=== PATIENT | female | born 1985 | race Caucasian/White ===

== ENCOUNTER 2017-04-23 06:27 | Inpatient (IN) | payer MEDICAID ==
[2017-04-20 09:51] LABS: ABSOLUTE EOSINOPHILS # (AUTO) 0.1 10^3/uL (0.0-0.6); ABSOLUTE LYMPHOCYTES (AUTO) 1.3 10^3/uL (0.5-4.7); ABSOLUTE MONOCYTES (AUTO) 0.6 10^3/uL (0.1-1.4); ABSOLUTE NEUT (AUTO) 7.1 10^3/uL (1.7-8.2); BASOPHILS % (AUTO) 0.1 % (0-2); EOSINOPHILS % (AUTO) 0.8 % (0-6); HEMATOCRIT 37.9 % (36.0-47.0); HEMOGLOBIN 12.7 g/dL (12.0-15.5); HGB HCT DIFFERENCE 0.2; LYMPHOCYTES % (AUTO) 14.3 % (13-45); MEAN CORPUSCULAR HEMOGLOBIN 30.6 pg (27.0-33.4); MEAN CORPUSCULAR HGB CONC 33.4 g/dL (32.0-36.0); MEAN CORPUSCULAR VOLUME 92 fl (80-97); MONOCYTES % (AUTO) 6.3 % (3-13); RED BLOOD COUNT 4.14 10^6/uL (3.72-5.28); RED CELL DISTRIBUTION WIDTH 14.8 % (11.5-14.0); SEGMENTED NEUTROPHILS % (AUTO) 78.5 % (42-78); WHITE BLOOD COUNT 9.1 10^3/uL (4.0-10.5)
[2017-04-20 09:59] LABS: APPEARANCE,URINE CLOUDY; BILIRUBIN,URINE NEGATIVE (NEGATIVE); GLUCOSE, URINE NEGATIVE (NEGATIVE); KETONES,URINE TRACE mg/dL (NEGATIVE); LEUKOCYTE ESTERASE,URINE TRACE (NEGATIVE); NITRITE,URINE NEGATIVE (NEGATIVE); PROTEIN,URINE 30 mg/dL (NEGATIVE); URINE SPECIFIC GRAVITY 1.016
[2017-04-20 10:13] LABS: URINE BARBITURATES SCREEN NEGATIVE; URINE METHADONE SCREEN NEGATIVE; URINE OPIATES LOW NEGATIVE; URINE PHENCYCLIDINE SCREEN NEGATIVE
[2017-04-23] MEDS ORDERED: CEFAZOLIN 1 GM/D5W RTU 1 GM/50 ML RTUPB IV PRN (07:05)
[2017-04-23] MEDS ORDERED: LIDOCAINE 0.5% INJ-PF (5 MG/ML) 50 ML SDV SUBCUT PRN (07:08)
[2017-04-23] MEDS ORDERED: RINGERS SOLUTION,LACTATED 1,000 ML IV PRN ×2 (07:08→07:09)
[2017-04-23] MEDS ORDERED: CITRIC ACID/SODIUM CITRATE ORAL SOLN 15 ML UDCUP PO PRN (07:10)
[2017-04-23] MEDS ORDERED: OXYTOCIN 10 UNIT/ML VIAL ONE (08:56)
[2017-04-23] MEDS ORDERED: PROPOFOL INJ 200 MG/20 ML VIAL IV ONE (08:56)
[2017-04-23] MEDS ORDERED: FENTANYL CITRATE INJ/PF 100 MCG/2 ML AMPUL ONE (08:56)
[2017-04-23] MEDS ORDERED: MIDAZOLAM 2 MG/2 ML INJ ONE (08:57)
[2017-04-23] MEDS ORDERED: PHENYLEPHRINE HCL INJ/PF 10 MG/1 ML SDV ONE (09:45)
[2017-04-23] MEDS ORDERED: ONDANSETRON HCL INJ/PF 4 MG/2 ML SDV ONE (09:45)
[2017-04-23] MEDS ORDERED: MEPERIDINE HCL/PF INJ 25 MG/1 ML DISP.SYRIN ONE (10:22)
[2017-04-23] MEDS ORDERED: OXYTOCIN/NORMAL SALINE 20 UNIT/1,000 ML RTUINJ ONE (10:28)
[2017-04-23] MEDS ORDERED: MORPHINE SULFATE 10 MG/ML INJ ONE (11:21)
[2017-04-23] MEDS ORDERED: HYDROMORPHONE HCL INJ/PF 2 MG/ML AMPULE IV PRN (12:41)
[2017-04-23] MEDS ORDERED: DIPH/PERTUSS(ACELL)/TETANUS VAC/PF 0.5 ML SYR (>=10YO) IM PRN (12:41)
[2017-04-23] MEDS ORDERED: PROMETHAZINE HCL INJ 25 MG/1 ML VIAL IV PRN (12:41)
[2017-04-23] MEDS ORDERED: MEASLES,MUMPS&RUBELLA VACC/PF 0.5 ML VIAL SUBCUT PRN (12:41)
[2017-04-23] MEDS ORDERED: SIMETHICONE 80 MG TAB.CHEW PO PRN (12:41)
[2017-04-23] MEDS ORDERED: OXYTOCIN/NORMAL SALINE 1,000 ML IV PRN (12:41)
[2017-04-23] MEDS ORDERED: ACETAMINOPHEN 325 MG TABLET PO PRN (12:41)
[2017-04-23] MEDS: KETOROLAC TROMETHAMINE INJ/PF 30 MG/1 ML SDV IV SCH ×2 (13:17→22:19)
[2017-04-23] MEDS: DOCUSATE SODIUM 100 MG CAPSULE PO SCH (18:14)
[2017-04-23] MEDS: OXYCODONE-ACETAMINOPHEN 5-325 MG TABLET PO PRN (20:37)
[2017-04-24] MEDS: OXYCODONE-ACETAMINOPHEN 5-325 MG TABLET PO PRN ×4 (02:27→22:05)
[2017-04-24] MEDS: KETOROLAC TROMETHAMINE INJ/PF 30 MG/1 ML SDV IV SCH (05:22)
[2017-04-24 07:32] LABS: HEMATOCRIT 37.4 % (36.0-47.0); HEMOGLOBIN 12.4 g/dL (12.0-15.5); HGB HCT DIFFERENCE -0.2; MEAN CORPUSCULAR HEMOGLOBIN 30.3 pg (27.0-33.4); MEAN CORPUSCULAR HGB CONC 33.1 g/dL (32.0-36.0); MEAN CORPUSCULAR VOLUME 92 fl (80-97); RED BLOOD COUNT 4.09 10^6/uL (3.72-5.28); RED CELL DISTRIBUTION WIDTH 14.8 % (11.5-14.0); WHITE BLOOD COUNT 11.9 10^3/uL (4.0-10.5)
[2017-04-24] MEDS: PRENATAL VITAMIN W-O CA NO5/FE FUMARATE/FA CAPSULE PO SCH (10:05)
[2017-04-24] MEDS: DOCUSATE SODIUM 100 MG CAPSULE PO SCH ×2 (10:05→18:10)
--- NOTE | 2017-04-24 11:00 | PDOC PROGRESS REPORT ---
Subjective-OB Subjective: Post Delivery Day: 31 year old. Denies any needs at this time pt sitting up visiting with family incision dry and intact ff@u-1 mild lochia abdomen nontender +flatus anticipate d/c in AM Physical Exam (OB) Vital Signs: Temp Pulse Resp BP Pulse Ox 97.9 F 73 16 113/73 98 04/24/17 08:16 04/24/17 08:16 04/24/17 08:16 04/24/17 08:16 04/24/17 08:16 Intake & Output 04/23/17 04/24/17 04/25/17 06:59 06:59 06:59 Intake Total 240 Output Total 800 Balance -560 Weight 76 kg - PIH/Pre-Eclampsia DTR's: 1 + Clonus: Negative Headache: Absent Epigastric Pain: No Visual Changes: No - Dressing Removed: No Incision: Dressing Closure Type: Sutures - Lochia Lochia Amount: Scant < 10 ml Lochia Color: Rubra/Red - Abdomen Description: Tender, Soft Hernia Present: No Fundal Description: Firm, Midline Fundal Height: u/u - u/2 Objective-Diagnostic Laboratory: 04/24/17 07:10 04/24/17 07:10 WBC 11.9 H RBC 4.09 Hgb 12.4 Hct 37.4 MCV 92 MCH 30.3 MCHC 33.1 RDW 14.8 H Plt Count 145 L
[2017-04-24] MEDS: IBUPROFEN 800 MG TABLET PO SCH (23:02)
[2017-04-25] MEDS: OXYCODONE-ACETAMINOPHEN 5-325 MG TABLET PO PRN ×2 (02:05→08:35)
[2017-04-25] MEDS: IBUPROFEN 800 MG TABLET PO SCH ×2 (05:56→11:35)
[2017-04-25] MEDS: PRENATAL VITAMIN W-O CA NO5/FE FUMARATE/FA CAPSULE PO SCH (08:34)
[2017-04-25] MEDS: DOCUSATE SODIUM 100 MG CAPSULE PO SCH (08:35)
--- NOTE | 2017-04-25 10:18 | PDOC PROGRESS REPORT ---
Subjective-OB Subjective: Post Delivery Day: 31 year old. Denies any needs at this time Doing well, ready to go home, eating well, voiding, ambulating, pain under control, scant bleeding Physical Exam (OB) Vital Signs: Temp Pulse Resp BP Pulse Ox 98.0 F 59 L 16 116/79 99 04/25/17 08:10 04/25/17 08:10 04/25/17 08:10 04/25/17 08:10 04/25/17 08:10 Intake & Output 04/24/17 04/25/17 04/26/17 06:59 06:59 06:59 Intake Total 240 480 Output Total 800 Balance -560 480 Weight 76 kg - PIH/Pre-Eclampsia DTR's: 1 + Clonus: Negative Headache: Absent Epigastric Pain: No Visual Changes: No - Dressing Removed: No - opsite Incision: Dressing Closure Type: Sutures - Lochia Lochia Amount: Small 10-25 ml Lochia Color: Rubra/Red - Abdomen Description: Soft Hernia Present: No Fundal Description: Firm, Midline Fundal Height: u/u - u/2 Objective-Diagnostic Laboratory: 04/24/17 07:10 Assessment and Plan(PN) - Assessment and Plan (1) Arrested labor Is this a current diagnosis for this admission?: Yes (2) Delivery by emergency caesarean section Is this a current diagnosis for this admission?: Yes (3) Gestational hypertension Qualifiers: Trimester: third trimester Qualified Code(s): O13.3 - Gestational [ -induced] hypertension without significant proteinuria, third trimester Is this a current diagnosis for this admission?: Yes - Time Spent with Patient Time with patient: Less than 15 minutes Medications reviewed and adjusted accordingly: Yes - Disposition Anticipated Discharge: Home Within: Other - home today
--- NOTE | 2017-04-25 10:21 | PDOC DISCHARGE SUMMARY ---
Final Diagnosis Discharge Date: 04/25/17 - Final Diagnosis (1) Arrested labor Is this a current diagnosis for this admission?: Yes (3) Gestational hypertension Is this a current diagnosis for this admission?: Yes Discharge Data - Discharge Medication Home Medications: Ozh219/Iron Fumarate/FA/Dss [ 19 Tablet] 1 each PO DAILY 11/04/15 Ferrous Sulfate [Feosol 325 mg Tablet] 325 mg PO BID #0 tablet 11/12/15 Ibuprofen [Motrin 800 mg Tablet] 800 mg PO Q6 #60 tablet 04/25/17 Oxycodone HCl/Acetaminophen [Percocet 5-325 mg Tablet] 1 tab PO Q4HP PRN #30 tablet 04/25/17 Gestational Age: 39 Procedures: NST, Ultrasound Intrapartum Procedure(s): : Low Cervical, Transverse - Data Baby 1 Male Weight: 4.054 kg Home with Mother: Yes Complications: No - Diagnosis Test Laboratory: Temp Pulse Resp BP Pulse Ox 98.0 F 59 L 16 116/79 99 04/25/17 08:10 04/25/17 08:10 04/25/17 08:10 04/25/17 08:10 04/25/17 08:10 04/20/17 04/20/17 04/24/17 09:11 09:20 07:10 RBC 4.14 4.09 Hgb 12.7 12.4 Hct 37.9 37.4 Urine Opiates Screen NEGATIVE - Discharge information/Instructions Discharge Activity: Activity As Tolerated, No Lifting Over 10 Pounds, Pelvic Rest Discharge Diet: Regular Disposition: HOME, SELF-CARE Follow up with: [facility] in: 1, Weeks
[2017-04-25 11:23] VITALS: BP 126/78
--- NOTE | 2017-06-03 20:22 | PDOC DELIVERY SUMMARY ---
Delivery Summary - Maternal Hx : IV Hx # Term Pregnancies: 1 Hx Total # of Abortions (Sponateous & Elective): 2 AUDREY: 04/29/17 Gestational Age: 39 Ruptured Membranes: AROM Time of Rupture: 09:38 Fluids: Clear - Delivery Presentation: Vertex Heart Rate Monitoring: Done Pre-Operatively Support Person Present: Yes Location: OR : Scheduled Placenta: Within Normal Limits Delivery of Placenta Date: 04/23/17 Delivery of Placenta Time: 09:39 - Medications Type of Anesthesia:: Spinal - Assess and Care Baby 1 Male Delivery of Infant Date: 04/23/17 Delivery of Time: 09:38 at 1 minute: 8 at 5 minutes: 8 Preprinted Number On Band: [id number] Infant Skin to Skin: No - INFANT REQUIRED MONITORING To Nursery At: 09:46 Mode of Transport: Bassinet Delivery Weight: 4055 kg Delivery Length: 21 in - Delivery Personnel Billing Auditor: DR RENETTA Lomax RN: DAXA RN: BEV MARTINEZ MD: LAURY SHANE
--- NOTE | 2017-06-07 15:28 | OPERATIVE REPORT E ---
Operative Report NAME: VY REY : 1985 AGE: 31Y DATE OF SURGERY: 04/23/2017 ROOM: 226 PREOPERATIVE DIAGNOSES: 1. IUP at 39 plus weeks. 2. Previous C section, desires repeat. POSTOPERATIVE DIAGNOSES: 1. IUP at 39 plus weeks. 2. Previous C section, desires repeat. SURGEON: LAURY SHANE M.D. ANESTHESIOLOGIST: SONYA CASE M.D. ANESTHESIA: Spinal. FINDINGS: A male infant in cephalic presentation with Apgars of 8 and 8. COMPLICATIONS: None. ESTIMATED BLOOD LOSS: 600 mL. SPECIMENS REMOVED: None. PROCEDURE: Low transverse hysterotomy section. PROCEDURE IN DETAIL: The patient was taken to the operating room, prepared and draped in the normal sterile fashion in the supine position with a leftward tilt. A transverse skin incision was made with a scalpel and carried through the underlying layer of fascia with same scalpel. The fascia was excised in the midline and extended laterally with Azul scissors. The fascia was then dissected from the rectus muscle sharply with Edmund and the rectus muscle was divided. The peritoneal cavity was entered bluntly with surgeon finger fracture. With good visualization of the bladder and the uterus, a bladder blade was inserted. The hysterotomy was nicked with a scalpel and extended laterally with surgeon finger fracture. The infant's head was then delivered atraumatically. The nose and mouth were suctioned with a suction bulb and cord was clamped and cut. Infant was handed off to awaiting pediatricians. Cord blood was collected and the placenta was removed manually. The uterus was exteriorized and cleared of clots and debris. The hysterotomy was closed with 0-Monocryl in a running locked fashion. The second layer of the same suture was used to imbricate to ensure hemostasis. The uterus was returned to the abdomen. The peritoneal cavity was once again cleared of clots and debris. The hysterotomy was reinspected and now found to be hemostatic. The rectus muscle and peritoneum were reapproximated with a stitch of 2-0 Chromic using a mattress stitch. The fascia was closed with 0 Vicryl, the subcutaneous layer was closed with plain catgut and the skin was closed with 4-0 Vicryl. The patient tolerated the procedure well. Sponge, lap, and needle counts were correct x2. The patient was taken to recovery in a stable condition. DICTATING PHYSICIAN: LAURY SHANE M.D. [id number] PHY#: [id number] ID: [id number] JOB#: [id number] ACCT: [id number] cc:LAURY SHANE M.D. >
== END 2017-04-25 12:32 | disposition home or self-care (01) | DRG 766 ==
LOC: 2S 06:27
PROVIDERS: ADMIT Obstetrics & Gynecology; ATTEND Obstetrics & Gynecology
PROC: 4A1HXCZ Monitoring of Products of Conception, Cardiac Rate, External Approach (ICD-10-PCS; 2017-04-23)
PROC: 10D00Z1 Extraction of Products of Conception, Low, Open Approach (ICD-10-PCS; principal; 2017-04-23 09:30)
DX: O62.1 Secondary uterine inertia (principal); O34.211 Maternal care for low transverse scar from previous cesarean delivery; O13.4 Gestational [pregnancy-induced] hypertension without significant proteinuria, complicating childbirth; Z83.3 Family history of diabetes mellitus; Z82.49 Family history of ischemic heart disease and other diseases of the circulatory system; Z3A.39 39 weeks gestation of pregnancy; Z37.0 Single live birth
CPT/HCPCS: 1961; 36415; 59025; 80307; 81001; 85025; 85027; 86850; 86900; 86901; 94799; J1885; J2175; J2250; J2270; J2370; J2405; J2590; J2704; J3010; J7120

== ENCOUNTER 2017-05-21 19:30 | Emergency (ER) | payer MEDICAID ==
[2017-05-21] MEDS ORDERED: LIDOCAINE 5% (700 MG) TRANSDERMAL ADH..PATCH TP ONE (23:10)
--- NOTE | 2017-05-21 23:10 | ER Document Report ---
ED General - General Chief Complaint: Post Surgical Pain Stated Complaint: POST-OP PAIN Time Seen by Provider: 05/21/17 23:05 TRAVEL OUTSIDE OF THE [place] IN LAST 30 DAYS: No - HPI Patient complains to provider of: incisional pain Notes: Patient is approximate 4 weeks postop from having patient states this is her second with no complications coming in for pain left side of the incision patient states she did not have this pain with her previous . Patient states pain sharp stabbing shooting going up in her leg and sometimes with movement of her leg. Denies any fever chills nausea vomiting dysuria. - Related Data Allergies/Adverse Reactions: No Known Allergies Allergy (Verified 04/20/17 10:10) Past Medical History - Social History Smoking Status: Never Smoker Chew tobacco use (# tins/day): No Frequency of alcohol use: None Drug Abuse: None Family History: Reviewed & Not Pertinent Renal/ Medical History: Denies: Hx Peritoneal Dialysis GI Medical History: Reports: Hx Gastroesophageal Reflux Disease. Denies: Hx Hiatal Hernia, Hx Ulcer Infectious Medical History: Denies: Hx HIV Past Surgical History: Reports: Hx Section - 2 Review of Systems - Review of Systems Constitutional: No symptoms reported EENT: No symptoms reported Cardiovascular: No symptoms reported Respiratory: No symptoms reported Gastrointestinal: Other - scar pain Genitourinary: No symptoms reported Female Genitourinary: No symptoms reported Musculoskeletal: No symptoms reported Skin: No symptoms reported Hematologic/Lymphatic: No symptoms reported Neurological/Psychological: No symptoms reported Physical Exam - Vital signs Vitals: Temp Pulse Resp BP Pulse Ox 97.6 F 61 20 137/88 H 98 05/21/17 20:22 05/21/17 20:22 05/21/17 20:22 05/21/17 20:22 05/21/17 20:22 Interpretation: Normal - General General appearance: Appears well, Alert - HEENT Head: Normocephalic, Atraumatic Eyes: Normal Pupils: PERRL - Respiratory Respiratory status: No respiratory distress Chest status: Nontender Breath sounds: Normal Chest palpation: Normal - Cardiovascular Rhythm: Regular Heart sounds: Normal auscultation Murmur: No - Abdominal Inspection: Normal Distension: No distension Bowel sounds: Normal Tenderness: Nontender Organomegaly: No organomegaly Notes: Evaluation the patient's scar reveals no signs of infection pain is reproducible to light touch of the left lateral portion of the scar. - Back Back: Normal, Nontender - Extremities General upper extremity: Normal inspection, Nontender, Normal color, Normal ROM , Normal temperature General lower extremity: Normal inspection, Nontender, Normal color, Normal ROM , Normal temperature, Normal weight bearing. No: Faisal's sign - Neurological Neuro grossly intact: Yes Cognition: Normal Orientation: AAOx4 Enio Coma Scale Eye Opening: Spontaneous Enio Coma Scale Verbal: Oriented Kent Coma Scale Motor: Obeys Commands Kent Coma Scale Total: 15 Speech: Normal Motor strength normal: LUE, RUE, LLE, RLE Sensory: Normal - Psychological Associated symptoms: Normal affect, Normal mood - Skin Skin Temperature: Warm Skin Moisture: Dry Skin Color: Normal Course - Re-evaluation Re-evalutation: 05/22/17 00:08 Patient is experiencing incisional pain more likely due to healing process nerves rehealing. 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 The patient presents with abdominal pain without signs of peritonitis or other life-threatening or serious etiology. The patient appears stable for discharge and has been instructed to return immediately if the symptoms worsen in any way, or in 8-12hr if not improved for re-evaluation. The patient has been instructed to return if the symptoms worsen or change in any way. - Vital Signs Vital signs: Temp Pulse Resp BP Pulse Ox 97.6 F 61 20 137/88 H 98 05/21/17 20:22 05/21/17 20:22 05/21/17 20:22 05/21/17 20:22 05/21/17 20:22 Discharge - Discharge Clinical Impression: Pain at surgical incision Condition: Good Disposition: HOME, SELF-CARE Additional Instructions: Your examination is consistent with incisional pain. Whenever we perform surgeries we will cut small nerve endings whenever these nerve endings are trying to grow back together you can have sharp shooting stabbing pain is very sensitive to touch also sensitive to movement. We will place a lidocaine patch on the site tonight to see if this will aid in your pain relief he may also take Tylenol and Motrin. If the lidocaine patch does help out with your pain highly recommend discussing with your pharmacist about the [id number] cane creams and patches that are available. 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 Referrals: JULIET GARCIA MD [Primary Care Provider] - Follow up as needed
[2017-05-22 00:19] VITALS: BP 128/66
== END 2017-05-22 00:16 | disposition home or self-care (01) ==
LOC: ER 19:30
DX: G89.18 Other acute postprocedural pain (principal); Z98.890 Other specified postprocedural states
CPT/HCPCS: 99283; J3490